=== PATIENT | female | born 1995 | race Caucasian/White ===

== ENCOUNTER 2020-05-07 09:36 | Emergency (ER) | payer BC ==
--- NOTE | 2020-05-07 10:06 | EDM.PDOC ---
ED HPI GENERAL MEDICAL PROBLEM - General Chief Complaint: General Stated Complaint: CHEST PAIN, NECK PAIN Time Seen by Provider: 05/07/20 10:04 - History of Present Illness INITIAL COMMENTS - FREE TEXT/NARRATIVE: 24-year-old female presents to the emergency room with chest pain and anxiety. Patient developed some chest discomfort more of a burning sensation last evening. The patient also had an episode of this this morning. She could not work, so she came in to get evaluated for this. The patient used to be treated for anxiety with Lexapro however she has been off this for quite some time. The patient cannot identify any new stressors in her life she lives in a safe environment. Patient has not had any breathing difficulties or shortness of breath no cough. Chest Pain Score (Numeric/FACES): 2 - Related Data Allergies Allergy/AdvReac Type Severity Reaction Status Date / Time Penicillins Allergy Severe Rash Verified 05/07/20 09:46 Home Meds: Home Meds Famotidine [Heartburn Prevention] 20 mg PO ASDIRECTED #36 tablet 05/07/20 [Rx] LORazepam [Ativan] 0.5 mg PO Q24H PRN #6 tablet 05/07/20 [Rx] Past Medical History - Past Health History Medical/Surgical History: Denies Medical/Surgical History - Past Surgical History HEENT Surgical History: Reports: Oral Surgery Social & Family History - Tobacco Use Smoking Status *Q: Never Smoker - Caffeine Use Caffeine Use: Reports: Coffee ED ROS GENERAL - Review of Systems Review Of Systems: See Below Constitutional: Reports: No Symptoms HEENT: Reports: No Symptoms Respiratory: Reports: No Symptoms Cardiovascular: Reports: Chest Pain (Thought to be GI in origin) GI/Abdominal: Denies: Abdominal Pain, Constipation, Diarrhea, Nausea, Vomiting Psychiatric: Reports: Anxiety. Denies: Hallucinations, Homicidal Ideation, Mood Lability, Suicidal Ideation ED EXAM, GENERAL - Physical Exam Exam: See Below Exam Limited By: No Limitations General Appearance: Alert, No Apparent Distress Head: Atraumatic, Normocephalic Neck: Normal Inspection, Supple, Full Range of Motion (No nuchal rigidity), Other (She has some tightness in the muscles at the base of her skull posteriorl y and this seems to mimic the discomfort she is having in this area.) Respiratory/Chest: No Respiratory Distress, Lungs Clear, Normal Breath Sounds Cardiovascular: Regular Rate, Rhythm, No Edema, No Murmur GI/Abdominal: Normal Bowel Sounds, Soft, Other (Has some moderate epigastric discomfort and mild left upper quadrant discomfort) Back Exam: Normal Inspection. No: CVA Tenderness (L), CVA Tenderness (R) Neurological: Alert, Oriented, Normal Cognition Psychiatric: Normal Affect, Anxious. No: Depressed Mood, Flat Affect Skin Exam: Warm, Dry, Intact EKG INTERPRETATION EKG Date: 05/07/20 Rhythm: NSR [place]: Normal P-Wave: Present QRS: Normal ST-T: Normal QT: Normal Comparison: NA - No Prior EKG EKG Interpretation Comments: Normal EKG Course - Vital Signs Last Recorded V/S: Last Vital Signs Temp 37.2 C 05/07/20 09:41 Pulse 105 H 05/07/20 09:41 Resp 16 05/07/20 09:41 BP 141/82 H 05/07/20 09:41 Pulse Ox 99 05/07/20 09:41 - Orders/Labs/Meds Orders: Active Orders 24 hr Category Date Time Status EKG Documentation Completion [RC] STAT Care 05/07/20 10:38 Active Meds: Medications Discontinued Medications Generic Name Dose Route Start Last Admin Trade Name Freq PRN Reason Stop Dose Admin Famotidine 40 mg 05/07/20 10:38 05/07/20 10:46 Pepcid PO 05/07/20 10:39 40 mg ONETIME ONE Administration - Re-Assessments/Exams Free Text/Narrative Re-Assessment/Exam: 05/07/20 11:05 Discussed the situation with the patient detail I think a lot of this is anxiety related however she is having some reflux symptoms and this needs to be address ed as a separate issue. Patient states she is going to follow-up with her regular provider and see about getting back on something for her anxiety more appropriate for long-term in the meantime we will put her on Ativan 0.5 mg 1 daily as needed #6. She is received 40 mg of p.o. famotidine here in the emergency department she will take 20 mg twice a day for 7 days and then 1 daily thereafter. Departure - Departure Time of Disposition: 11:07 Disposition: Home, Self-Care 01 Clinical Impression: GERD (gastroesophageal reflux disease), Anxiety - Discharge Information Referrals: Darling Renteria NP [Primary Care Provider] - Forms: ED Department Discharge Additional Instructions: Return to the emergency room with any questions problems or worsening symptoms Follow-up with your regular healthcare provider this next week. Use the Ativan, or Lorazepam, once nightly as needed for anxiety. Allow 12 hours after using this medication before driving or returning to work. As we discussed use the Pepcid, or famotidine, 20 mg, 1 twice daily for 1 week and then 1 daily thereafter. Sepsis Event Note (ED) - Evaluation Sepsis Screening Result: No Definite Risk - Focused Exam Vital Signs: Vital Signs Temp Pulse Resp BP Pulse Ox 05/07/20 09:41 37.2 C 105 H 16 141/82 H 99 - My Orders Last 24 Hours: My Active Orders 05/07/20 10:38 EKG Documentation Completion [RC] STAT - Assessment/Plan Last 24 Hours: My Active Orders 05/07/20 10:38 EKG Documentation Completion [RC] STAT
[2020-05-07] MEDS ORDERED: Famotidine 20 MG Tab PO ONE (10:38)
== END 2020-05-07 11:22 | disposition home or self-care (01) ==
LOC: JD.ED 09:36
DX: K21.9 Gastro-esophageal reflux disease without esophagitis (principal); F41.9 Anxiety disorder, unspecified; Z88.0 Allergy status to penicillin
CPT/HCPCS: 93005; 99284; A9270; 93010; 99283

== ENCOUNTER 2021-05-25 03:45 | Inpatient (IN) | payer OTHER ==
[2021-05-25] MEDS ORDERED: Acetaminophen 325 MG Tab PO PRN (07:05)
[2021-05-25] MEDS ORDERED: Ondansetron 4 MG/2 ML SDV IVPUSH PRN (07:05)
[2021-05-25] MEDS ORDERED: Sodium Chloride 0.9% 10 ML Syringe FLUSH PRN (07:05)
[2021-05-25] MEDS ORDERED: Nalbuphine 10 MG/1 ML Vial IVPUSH PRN (07:05)
--- NOTE | 2021-05-25 07:07 | PCM.LDHP ---
L&D History of Present Illness - General Date of Service: 05/25/21 Admit Problem/Dx: Patient Status Order with Admit Dx/Problem 05/25/21 07:05 Patient Status [ADT] Routine Admission Diagnosis/Problem Admission Diagnosis/Problem Normal Source of Information: Patient History Limitations: Reports: No Limitations - History of Present Illness Introduction:: Patient is a 25 y/o at 40 2/7 wks who presents for elective IOL. Doing well. 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: 0 LMP (Approximate): - Past Surgical History HEENT Surgical History: Reports: Oral Surgery Social & Family History - Tobacco Use Tobacco Use Status *Q: Never Tobacco User - Caffeine Use Caffeine Use: Reports: Coffee - Alcohol Use Alcohol Use History: No - Recreational Drug Use Recreational Drug Use: No H&P Review of Systems - Review of Systems: Review Of Systems: See Below General: Reports: No Symptoms Pulmonary: Reports: No Symptoms Cardiovascular: Reports: No Symptoms Gastrointestinal: Reports: No Symptoms Genitourinary: Reports: No Symptoms Musculoskeletal: Reports: No Symptoms Psychiatric: Reports: No Symptoms L&D Exam - Exam Exam: See Below - OB Specific Contraction Intensity: Irritability Movement: Active Heart Tones: Present Heart Tones per Min: 130 Heart Rate (FHR) Variability: Moderate (6-25 bmp) Presentation: Vertex - Ghotra Score Ghotra Score Cervix Position: Midposition Ghotra Score Consistency: Soft Ghotra Score Effacement: 51-70% Ghotra Score Dilation: 1-2 cm Ghotra Score 's Station: -2 Ghotra Score Total: 7 - Exam General: Alert, Oriented, Cooperative Lungs: Clear to Auscultation, Normal Respiratory Effort Cardiovascular: Regular Rate, Regular Rhythm GI/Abdominal Exam: Soft, Non-Tender Genitourinary: Normal external exam Extremities: Normal Inspection Skin: Warm, Dry, Intact - Patient Data Result Diagrams: 05/25/21 07:23 - Problem List (1) 40 weeks gestation of SNOMED Code(s): 65205614 ICD Code: Z3A.40 - 40 WEEKS GESTATION OF Status: Acute Current Visit: Yes Problem List Initiated/Reviewed/Updated: Yes Orders Last 24hrs: Active Orders 24 hr Category Date Time Status Patient Status [ADT] Routine ADT 05/25/21 07:05 Ordered Communication Order [RC] ASDIRECTED Care 05/25/21 07:05 Ordered Communication Order [RC] ASDIRECTED Care 05/25/21 07:05 Ordered Communication Order [RC] ASDIRECTED Care 05/25/21 07:05 Ordered Communication Order [RC] ASDIRECTED Care 05/25/21 07:05 Ordered Monitoring [RC] INTERMITTENT Care 05/25/21 07:05 Ordered Non Stress Test [RC] PER UNIT ROUTINE Care 05/25/21 07:05 Ordered Notify Provider [RC] ASDIRECTED Care 05/25/21 07:05 Ordered Notify Provider [RC] PRN Care 05/25/21 07:05 Ordered Peripheral IV Care [RC] . DIRECTED Care 05/25/21 07:05 Ordered Up ad Nathalie [RC] ASDIRECTED Care 05/25/21 07:05 Ordered Vaginal Exam [RC] ASDIRECTED Care 05/25/21 07:05 Ordered Vital Signs [RC] ASDIRECTED Care 05/25/21 07:05 Ordered Regular Diet [DIET] Diet 05/25/21 Breakfast Ordered CBC W/O DIFF,HEMOGRAM [HEME] Routine Lab 05/25/21 07:05 Ordered CORONAVIRUS COVID-19 CHUCK [MOLEC] Stat Lab 05/25/21 07:07 Ordered HEP C VIRUS AB [REF] Routine Lab 05/25/21 07:05 Ordered RAPID PLASMA REAGIN,RPR [CHEM] Routine Lab 05/25/21 07:05 Ordered TYPE AND SCREEN [BBK] Routine Lab 05/25/21 07:05 Ordered Acetaminophen [TylenoL] Med 05/25/21 07:05 Ordered 650 mg PO Q4H PRN Lactated Ringers [Ringers, Lactated] 1,000 ml Med 05/25/21 07:15 Ordered IV ASDIRECTED Nalbuphine [Nubain] Med 05/25/21 07:05 Ordered 10 mg IVPUSH Q2H PRN Ondansetron [Zofran] Med 05/25/21 07:05 Ordered 4 mg IVPUSH Q4H PRN Oxytocin/Lactated Ringers [Pitocin in LR 10 Units/1,000 Med 05/25/21 07:15 Ordered ML] 10 unit in 1,000 ml IV .CONTINUOUS Oxytocin/Lactated Ringers [Pitocin in LR 10 Units/1,000 Med 05/25/21 07:15 Ordered ML] 10 unit in 1,000 ml IV TITRATE Sodium Chloride 0.9% [Saline Flush] Med 05/25/21 07:05 Ordered 10 ml FLUSH ASDIRECTED PRN miSOPROStoL [Cytotec] Med 05/25/21 07:05 Ordered 25 mcg VAG Q4H PRN Electronic Heart Tones Internal [WOMSER] Per Unit Oth 05/25/21 07:05 Ordered Routine Medication Administration Instruction [OM.PC] Oth 05/25/21 07:15 Ordered ASDIRECTED Peripheral IV Insertion Adult [OM.PC] Routine Oth 05/25/21 07:05 Ordered Resuscitation Status Routine Resus Stat 05/25/21 07:05 Ordered Assessment/Plan Comment:: * Labs to be done * GBS negative, no need for antibiotics * Cytotec for now. Potential lozano bulb later in induction. Pitocin/AROM when able * Pain management per patient preference * Anticipate
[2021-05-25] MEDS ORDERED: Oxytocin/Lactated Ringers 10 UNIT/1,000 ML BAG IV SCH ×2 (07:15)
[2021-05-25] MEDS: Misoprostol 25 MCG (1/4 of 100 MCG) Tab VAG PRN ×2 (07:43→11:54)
--- NOTE | 2021-05-25 08:51 | PCM.PREANE ---
Preanesthetic Assessment - Procedure Proposed Procedure: Labor epidural - Anesthesia/Transfusion/Family Hx Anesthesia History: Prior Anesthesia Without Reaction Family History of Anesthesia Reaction: No Transfusion History: No Prior Transfusion(s) Intubation History: Unknown - Review of Systems General: No Symptoms Pulmonary: No Symptoms Cardiovascular: No Symptoms Gastrointestinal: No Symptoms Neurological: No Symptoms Other: Reports: Anxiety - Physical Assessment NPO Status Date: 05/25/21 NPO Status Time: 08:30 Vital Signs: 120/76 HR 93 97% 16 98.3 Height: 1.7 m Weight: 91.172 kg ASA Class: 2 Mental Status: Alert & Oriented x3 Airway Class: Mallampati = 2 Dentition: Reports: Normal Dentition Thyro-Mental Finger Breadths: 3 Mouth Opening Finger Breadths: 3 ROM/Head Extension: Full Lungs: Clear to Auscultation, Normal Respiratory Effort Cardiovascular: Regular Rate, Regular Rhythm - Lab Values: Laboratory Last Values WBC 11.27 K/mm3 (3.98-10.04) H 05/25/21 07:23 RBC 4.31 M/mm3 (3.98-5.22) 05/25/21 07:23 Hgb 14.0 gm/dl (11.2-15.7) 05/25/21 07:23 Hct 40.6 % (34.1-44.9) 05/25/21 07:23 MCV 94.2 fl (79.4-94.8) 05/25/21 07:23 MCH 32.5 pg (25.6-32.2) H 05/25/21 07:23 MCHC 34.5 g/dl (32.2-35.5) 05/25/21 07:23 RDW Std Deviation 43.6 fL (36.4-46.3) 05/25/21 07:23 Plt Count 300 K/mm3 (182-369) 05/25/21 07:23 MPV 9.1 fl (9.4-12.3) L 05/25/21 07:23 SARS-CoV-2 RNA (CHUCK) Negative (NEGATIVE) 05/25/21 07:24 - Allergies Allergies/Adverse Reactions: Allergies Allergy/AdvReac Type Severity Reaction Status Date / Time Penicillins Allergy Severe Rash Verified 05/07/20 09:46 - Blood Blood Available: No Product(s) Available: None - Anesthesia Plan Pre-Op Medication Ordered: None - Acknowledgements Anesthesia Type Planned: Epidural Pt an Appropriate Candidate for the Planned Anesthesia: Yes Alternatives and Risks of Anesthesia Discussed w Pt/Guardian: Yes Pt/Guardian Understands and Agrees with Anesthesia Plan: Yes PreAnesthesia Questionnaire - Past Health History Medical/Surgical History: Denies Medical/Surgical History 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: Psychiatric History: Reports: Anxiety Other Dermatologic History: Vitiligo - Past Surgical History HEENT Surgical History: Reports: Oral Surgery - SUBSTANCE USE Tobacco Use Status *Q: Never Tobacco User Tobacco Use Within Last Twelve Months: No Second Hand Smoke Exposure: No Days Per Week of Alcohol Use: 0 Number of Drinks Per Day: 0 Total Drinks Per Week: 0 Recreational Drug Use History: No - HOME MEDS Home Medications: Home Meds Famotidine [Heartburn Prevention] 20 mg PO ASDIRECTED #36 tablet 05/07/20 [Rx] LORazepam [Ativan] 0.5 mg PO Q24H PRN #6 tablet 05/07/20 [Rx] - CURRENT (IN HOUSE) MEDS Current Meds: Current Medications Acetaminophen (Acetaminophen 325 Mg Tab) 650 mg PO Q4H PRN PRN Reason: Pain (Mild 1-3) and fever Oxytocin/Lactated Ringer's (Pitocin In Lr 10 Units/1,000 Ml) 10 unit in 1,000 mls @ 12 mls/hr IV TITRATE DAMIAN; Protocol Oxytocin/Lactated Ringer's (Pitocin In Lr 10 Units/1,000 Ml) 10 unit in 1,000 mls @ 500 mls/hr IV .CONTINUOUS DAMIAN Lactated Ringer's (Ringers, Lactated) 1,000 mls @ 40 mls/hr IV ASDIRECTED DAMIAN Misoprostol (Misoprostol 25 Mcg (1/4 Of 100 Mcg) Tab) 25 mcg VAG Q4H PRN PRN Reason: cervical ripening Last Admin: 05/25/21 07:43 Dose: 25 mcg Documented by: Nalbuphine HCl (Nalbuphine 10 Mg/1 Ml Vial) 10 mg IVPUSH Q2H PRN PRN Reason: Pain Ondansetron HCl (Ondansetron 4 Mg/2 Ml Sdv) 4 mg IVPUSH Q4H PRN PRN Reason: Nausea/Vomiting Sodium Chloride (Sodium Chloride 0.9% 10 Ml Syringe) 10 ml FLUSH ASDIRECTED PRN PRN Reason: Keep Vein Open
[2021-05-25] MEDS: Lactated Ringers 1,000 ML IV SCH ×2 (16:56→22:38)
[2021-05-25] MEDS ORDERED: Bupivacaine/fentaNYL/NS 100 ML Bag EPIDUR PRN (17:01)
[2021-05-25] MEDS ORDERED: ePHEDrine 50 MG/ML SDV IVPUSH PRN (17:01)
[2021-05-25] MEDS ORDERED: fentaNYL 100 MCG/2 ML SDV EPIDUR PRN (17:01)
[2021-05-25] MEDS ORDERED: diphenhydrAMINE 50 MG/ML SDV IVPUSH PRN (17:01)
--- NOTE | 2021-05-25 20:09 | PCM.PNLD ---
Labor Progress Note - VS & Meds Vital Signs: Last Vital Signs Temp 36.8 C 05/25/21 07:18 Pulse 93 05/25/21 07:18 Resp 16 05/25/21 07:18 BP 120/76 05/25/21 07:18 Pulse Ox 97 05/25/21 07:18 Active Medications: Current Medications Acetaminophen (Acetaminophen 325 Mg Tab) 650 mg PO Q4H PRN PRN Reason: Pain (Mild 1-3) and fever Diphenhydramine HCl (Diphenhydramine 50 Mg/Ml Sdv) 25 mg IVPUSH Q6H PRN PRN Reason: pruritis Ephedrine Sulfate (Ephedrine 50 Mg/Ml Sdv) 5 mg IVPUSH ASDIRECTED PRN PRN Reason: Hypotension Fentanyl (Fentanyl 100 Mcg/2 Ml Sdv) 100 mcg EPIDUR Q3H PRN PRN Reason: Pain Last Admin: 05/25/21 20:01 Dose: 100 mcg Documented by: Fentanyl/Bupivacaine HCl (Bupivacaine/Fentanyl/Ns 100 Ml Bag) 100 ml EPIDUR ASDIRECTED PRN PRN Reason: Pain Last Admin: 05/25/21 20:01 Dose: 100 ml Documented by: Oxytocin/Lactated Ringer's (Pitocin In Lr 10 Units/1,000 Ml) 10 unit in 1,000 mls @ 12 mls/hr IV TITRATE DAMIAN; Protocol Last Admin: 05/25/21 16:57 Dose: 2 munits/min, 12 mls/hr Documented by: Oxytocin/Lactated Ringer's (Pitocin In Lr 10 Units/1,000 Ml) 10 unit in 1,000 mls @ 500 mls/hr IV .CONTINUOUS DAMIAN Lactated Ringer's (Ringers, Lactated) 1,000 mls @ 40 mls/hr IV ASDIRECTED DAMIAN Last Admin: 05/25/21 16:56 Dose: 40 mls/hr Documented by: Misoprostol (Misoprostol 25 Mcg (1/4 Of 100 Mcg) Tab) 25 mcg VAG Q4H PRN PRN Reason: cervical ripening Last Admin: 05/25/21 11:54 Dose: 25 mcg Documented by: Nalbuphine HCl (Nalbuphine 10 Mg/1 Ml Vial) 10 mg IVPUSH Q2H PRN PRN Reason: Pain Ondansetron HCl (Ondansetron 4 Mg/2 Ml Sdv) 4 mg IVPUSH Q4H PRN PRN Reason: Nausea/Vomiting Sodium Chloride (Sodium Chloride 0.9% 10 Ml Syringe) 10 ml FLUSH ASDIRECTED PRN PRN Reason: Keep Vein Open - Uterine Contractions Uterine Monitoring Mode: External [place] Contraction Intensity: Moderate - Monitoring Monitor Mode: External Ultrasound Heart Rate (FHR) Baseline: 125 Heart Rate (FHR) Variability: Moderate (6-25 bmp) Accelerations: Present, 15x15 Decelerations: None Strip Review: Category I - Vaginal Exam Dilation (cm): 5 Effacement (Percent): 70 Station: -2 Cervical Position: Midposition - Labor Progress (Free Text) Labor Progress: Doing well. Received 1st dose of cytotec at 0745 and then 2nd dose and lozano bulb at 1200. Lozano bulb out around 1600 or so. Started on Pitocin at 1700, currently only on 4. Rates contractions 5/10. AROM done with release of clear fluid. Planning epidural next
[2021-05-26] MEDS ORDERED: Bupivacaine 0.25% 10 ML SDV ONE ×2
--- NOTE | 2021-05-26 04:10 | PCM.DEL ---
L & D Note - General Info Date of Service: 05/26/21 - Delivery Note Labor: Induced by ARM, Induced by Oxytocin Cervical Ripening Method: Balloon Device, Misoprostil Delivery Outcome: Livebirth Infant Delivery Method: Spontaneous Vaginal Delivery-Single Delivery Mode: Spontaneous Presentation: Left Occiput Anterior (ANJANA) Nuchal Cord: Present (Tight, not reduced ) Anesthesia Type: Epidural Amniotic Fluid Description: Clear Episiotomy Type: None Laceration: 2nd Degree, Perineal, Vaginal Suture type: Vicryl Suture size: 2-0 Placenta: Intact, Spontaneous Cord: 3 Vessels Estimated Blood Loss: 100 Resuscitation Needed: Yes : Bulb Syringe, Stimulated, Warmed, [place] Used, Warmer Used Delivery Comments (Free Text/Narrative):: Patient found to be complete and began pushing. With maternal pushing effort head delivered from ANJANA presentation. Tight nuchal present and so not reduced. With gentle downward traction the shoulders and body delivered. Infant placed on maternal abdomen. Cord clamped and cut. Cord blood obtained. Placenta allowed time to separate and expelled intact. Inspection of perineum showed a 2nd degree vaginal and perineal laceration. This was repaired with a 2-0 Vicryl . - General Info Date of Service: 05/26/21 - Patient Data Vitals - Most Recent: Last Vital Signs Temp 36.8 C 05/25/21 07:18 Pulse 93 05/25/21 07:18 Resp 16 05/25/21 07:18 BP 120/76 05/25/21 07:18 Pulse Ox 97 05/25/21 07:18 Weight - Most Recent: 91.172 kg I&O - Last 24 Hours: Intake & Output 05/25/21 05/25/21 05/26/21 14:59 22:59 06:59 Intake Total 1000 Balance 1000 Lab Results Last 24 Hours: Laboratory Results - last 24 hr 05/25/21 05/25/21 05/25/21 Range/Units 07:23 07:23 07:23 WBC 11.27 H (3.98-10.04) K/mm3 RBC 4.31 (3.98-5.22) M/mm3 Hgb 14.0 (11.2-15.7) gm/dl Hct 40.6 (34.1-44.9) % MCV 94.2 (79.4-94.8) fl MCH 32.5 H (25.6-32.2) pg MCHC 34.5 (32.2-35.5) g/dl RDW Std Deviation 43.6 (36.4-46.3) fL Plt Count 300 (182-369) K/mm3 MPV 9.1 L (9.4-12.3) fl RPR Non-reactive (NONREACTIVE) SARS-CoV-2 RNA (CHUCK) (NEGATIVE) Blood Type O NEGATIVE Gel Antibody Screen Positive 05/25/21 Range/Units 07:24 WBC (3.98-10.04) K/mm3 RBC (3.98-5.22) M/mm3 Hgb (11.2-15.7) gm/dl Hct (34.1-44.9) % MCV (79.4-94.8) fl MCH (25.6-32.2) pg MCHC (32.2-35.5) g/dl RDW Std Deviation (36.4-46.3) fL Plt Count (182-369) K/mm3 MPV (9.4-12.3) fl RPR (NONREACTIVE) SARS-CoV-2 RNA (CHUCK) Negative (NEGATIVE) Blood Type Gel Antibody Screen Med Orders - Current: Current Medications Acetaminophen (Acetaminophen 325 Mg Tab) 650 mg PO Q4H PRN PRN Reason: Pain (Mild 1-3) and fever Diphenhydramine HCl (Diphenhydramine 50 Mg/Ml Sdv) 25 mg IVPUSH Q6H PRN PRN Reason: pruritis Ephedrine Sulfate (Ephedrine 50 Mg/Ml Sdv) 5 mg IVPUSH ASDIRECTED PRN PRN Reason: Hypotension Fentanyl (Fentanyl 100 Mcg/2 Ml Sdv) 100 mcg EPIDUR Q3H PRN PRN Reason: Pain Last Admin: 05/25/21 20:01 Dose: 100 mcg Documented by: Fentanyl/Bupivacaine HCl (Bupivacaine/Fentanyl/Ns 100 Ml Bag) 100 ml EPIDUR ASDIRECTED PRN PRN Reason: Pain Last Admin: 05/25/21 20:01 Dose: 100 ml Documented by: Oxytocin/Lactated Ringer's (Pitocin In Lr 10 Units/1,000 Ml) 10 unit in 1,000 mls @ 12 mls/hr IV TITRATE DAMIAN; Protocol Last Admin: 05/25/21 16:57 Dose: 2 munits/min, 12 mls/hr Documented by: Oxytocin/Lactated Ringer's (Pitocin In Lr 10 Units/1,000 Ml) 10 unit in 1,000 mls @ 500 mls/hr IV .CONTINUOUS DAMIAN Lactated Ringer's (Ringers, Lactated) 1,000 mls @ 40 mls/hr IV ASDIRECTED DAMIAN Last Admin: 05/25/21 22:38 Dose: 40 mls/hr Documented by: Misoprostol (Misoprostol 25 Mcg (1/4 Of 100 Mcg) Tab) 25 mcg VAG Q4H PRN PRN Reason: cervical ripening Last Admin: 05/25/21 11:54 Dose: 25 mcg Documented by: Nalbuphine HCl (Nalbuphine 10 Mg/1 Ml Vial) 10 mg IVPUSH Q2H PRN PRN Reason: Pain Ondansetron HCl (Ondansetron 4 Mg/2 Ml Sdv) 4 mg IVPUSH Q4H PRN PRN Reason: Nausea/Vomiting Last Admin: 05/25/21 20:53 Dose: 4 mg Documented by: Sodium Chloride (Sodium Chloride 0.9% 10 Ml Syringe) 10 ml FLUSH ASDIRECTED PRN PRN Reason: Keep Vein Open - Exam Urinary Catheter Total Time: 0Days 0Hours - Problem List & Annotations (1) 40 weeks gestation of SNOMED Code(s): 04971304 Code(s): Z3A.40 - 40 WEEKS GESTATION OF Status: Acute Current Visit: Yes (2) Vaginal delivery SNOMED Code(s): 580427127 Code(s): O80 - ENCOUNTER FOR FULL-TERM UNCOMPLICATED DELIVERY Status: Acute Current Visit: Yes - Problem List Review Problem List Initiated/Reviewed/Updated: Yes - My Orders Last 24 Hours: My Active Orders 05/25/21 Breakfast Regular Diet [DIET] 05/25/21 07:05 Patient Status [ADT] Routine Communication Order [RC] ASDIRECTED Communication Order [RC] ASDIRECTED Communication Order [RC] ASDIRECTED Communication Order [RC] ASDIRECTED Notify Provider [RC] ASDIRECTED Notify Provider [RC] PRN Up ad Nathalie [RC] ASDIRECTED Acetaminophen [TylenoL] 650 mg PO Q4H PRN Nalbuphine [Nubain] 10 mg IVPUSH Q2H PRN Ondansetron [Zofran] 4 mg IVPUSH Q4H PRN Sodium Chloride 0.9% [Saline Flush] 10 ml FLUSH ASDIRECTED PRN miSOPROStoL [Cytotec] 25 mcg VAG Q4H PRN Electronic Heart Tones Internal [WOMSER] Per Unit Routine Peripheral IV Insertion Adult [OM.PC] Routine Resuscitation Status Routine 05/25/21 07:15 Lactated Ringers [Ringers, Lactated] 1,000 ml IV ASDIRECTED Oxytocin/Lactated Ringers [Pitocin in LR 10 Units/1,000 ML] 10 unit in 1,000 ml IV .CONTINUOUS Oxytocin/Lactated Ringers [Pitocin in LR 10 Units/1,000 ML] 10 unit in 1,000 ml IV TITRATE Medication Administration Instruction [OM.PC] ASDIRECTED 05/25/21 07:23 ANTIBODY IDENTIFICATION [BBK] Routine HEP C VIRUS AB [REF] Routine TYPE AND SCREEN [BBK] Routine - Assessment Assessment:: PPD#0 - Plan Plan:: * Routine cares * Breast feeding * Continue home Lexapro * Discharge home in 1-2 days
[2021-05-26] MEDS ORDERED: Witch Hazel Medicated Pads 40/Jar TOP PRN (05:14)
[2021-05-26] MEDS ORDERED: Benzocaine/Menthol 20%-0.5% Spray 56 GM Canister TOP PRN (05:14)
[2021-05-26] MEDS ORDERED: Docusate Sodium 100 MG Cap PO PRN (05:14)
[2021-05-26] MEDS: Ibuprofen 600 MG Tab PO PRN ×2 (05:43→17:22)
[2021-05-26] MEDS: Citalopram 20 MG Tab PO SCH (09:51)
[2021-05-26] MEDS: Acetaminophen 325 MG Tab PO PRN (17:22)
--- NOTE | 2021-05-26 18:30 | PCM48HPAN ---
Post Anesthesia Note - EVALUATION WITHIN 48HRS OF ANESTHETIC Vital Signs in Normal Range: Yes Patient Participated in Evaluation: Yes Respiratory Function Stable: Yes Airway Patent: Yes Cardiovascular Function Stable: Yes Hydration Status Stable: Yes Pain Control Satisfactory: Yes Nausea and Vomiting Control Satisfactory: Yes Mental Status Recovered: Yes Vital Signs: Last Vital Signs Temp 36.7 C 05/26/21 15:38 Pulse 72 05/26/21 15:38 Resp 16 05/26/21 15:38 BP 110/67 05/26/21 15:38 Pulse Ox 96 05/26/21 15:38
[2021-05-27] MEDS: Ibuprofen 600 MG Tab PO PRN (00:59)
[2021-05-27] MEDS: Acetaminophen 325 MG Tab PO PRN (00:59)
--- NOTE | 2021-05-27 08:06 | PCM.DCSUM1 ---
Discharge Summary - Hospital Course Diagnosis: Stroke: No - Discharge Data Discharge Date: 05/27/21 Discharge Disposition: Home, Self-Care 01 Condition: Good - Referral to Home Health Primary Care Physician: Darling Renteria NP - Patient Instructions Diet: Usual Diet as Tolerated Driving: May Drive Today Showering/Bathing: May Shower Notify Provider of: Fever, Increased Pain, Swelling and Redness, Drainage, Nausea and/or Vomiting - Discharge Plan *PRESCRIPTION DRUG MONITORING PROGRAM REVIEWED*: No *COPY OF PRESCRIPTION DRUG MONITORING REPORT IN PATIENT JIMBO: No Home Medications: Home Meds Escitalopram Oxalate [Lexapro] 10 mg PO DAILY 05/25/21 [History] Pnv No.95/Ferrous Fum/Folic AC [ Tablet] 1 tab PO DAILY 05/25/21 [History] Referrals: Payal Hunter MD [Physician] - (2 weeks) - Discharge Summary/Plan Comment DC Time >30 min.: No - General Info Date of Service: 05/27/21 Functional Status: Reports: Pain Controlled - Review of Systems General: Reports: No Symptoms HEENT: Reports: No Symptoms Pulmonary: Reports: No Symptoms Cardiovascular: Reports: No Symptoms Gastrointestinal: Reports: No Symptoms Genitourinary: Reports: No Symptoms Musculoskeletal: Reports: No Symptoms Skin: Reports: No Symptoms Neurological: Reports: No Symptoms Psychiatric: Reports: No Symptoms - Patient Data Vitals - Most Recent: Last Vital Signs Temp 36.9 C 05/27/21 04:38 Pulse 58 L 05/27/21 04:38 Resp 14 05/27/21 04:38 BP 121/68 05/27/21 04:38 Pulse Ox 98 05/27/21 04:38 Weight - Most Recent: 91.172 kg I&O - Last 24 hours: Intake & Output 05/26/21 05/27/21 05/27/21 22:59 06:59 14:59 Intake Total 0 Balance 0 Med Orders - Current: Current Medications Acetaminophen (Acetaminophen 325 Mg Tab) 650 mg PO Q4H PRN PRN Reason: mild pain or fever Last Admin: 05/27/21 00:59 Dose: 650 mg Documented by: Benzocaine/Menthol (Benzocaine/Menthol 20%-0.5% [place] 56 Gm Canister) 0 gm TOP ASDIRECTED PRN PRN Reason: Perineal Comfort Measure Last Admin: 05/26/21 05:44 Dose: 1 can Documented by: Citalopram Hydrobromide (Citalopram 20 Mg Tab) 20 mg PO DAILY DAMIAN Last Admin: 05/26/21 09:51 Dose: Not Given Documented by: Docusate Sodium (Docusate Sodium 100 Mg Cap) 100 mg PO BID PRN PRN Reason: Constipation Last Admin: 05/26/21 05:43 Dose: 100 mg Documented by: Ibuprofen (Ibuprofen 600 Mg Tab) 600 mg PO Q6H PRN PRN Reason: Mild pain or fever Last Admin: 05/27/21 00:59 Dose: 600 mg Documented by: Irma Boss (Irma Boss Medicated Pads 40/Jar) 1 pad TOP ASDIRECTED PRN PRN Reason: Perineal Comfort Measure Last Admin: 05/26/21 05:44 Dose: 1 tub Documented by: Discontinued Medications Acetaminophen (Acetaminophen 325 Mg Tab) 650 mg PO Q4H PRN PRN Reason: Pain (Mild 1-3) and fever Last Admin: 05/26/21 02:09 Dose: 650 mg Documented by: Bupivacaine HCl (Bupivacaine 0.25% 10 Ml Sdv) 10 ml .ROUTE .STK-MED ONE Stop: 05/26/21 00:01 Bupivacaine HCl (Bupivacaine 0.25% 10 Ml Sdv) 10 ml .ROUTE .STK-MED ONE Stop: 05/26/21 00:01 Diphenhydramine HCl (Diphenhydramine 50 Mg/Ml Sdv) 25 mg IVPUSH Q6H PRN PRN Reason: pruritis Ephedrine Sulfate (Ephedrine 50 Mg/Ml Sdv) 5 mg IVPUSH ASDIRECTED PRN PRN Reason: Hypotension Fentanyl (Fentanyl 100 Mcg/2 Ml Sdv) 100 mcg EPIDUR Q3H PRN PRN Reason: Pain Last Admin: 05/25/21 20:01 Dose: 100 mcg Documented by: Fentanyl/Bupivacaine HCl (Bupivacaine/Fentanyl/Ns 100 Ml Bag) 100 ml EPIDUR ASDIRECTED PRN PRN Reason: Pain Last Admin: 05/25/21 20:01 Dose: 100 ml Documented by: Oxytocin/Lactated Ringer's (Pitocin In Lr 10 Units/1,000 Ml) 10 unit in 1,000 mls @ 12 mls/hr IV TITRATE DAMIAN; Protocol Last Titration: 05/26/21 03:46 Dose: 166.5 munits/min, 999 mls/hr Documented by: Oxytocin/Lactated Ringer's (Pitocin In Lr 10 Units/1,000 Ml) 10 unit in 1,000 mls @ 500 mls/hr IV .CONTINUOUS DAMIAN Lactated Ringer's (Ringers, Lactated) 1,000 mls @ 40 mls/hr IV ASDIRECTED DAMIAN Last Admin: 05/25/21 22:38 Dose: 40 mls/hr Documented by: Misoprostol (Misoprostol 25 Mcg (1/4 Of 100 Mcg) Tab) 25 mcg VAG Q4H PRN PRN Reason: cervical ripening Last Admin: 05/25/21 11:54 Dose: 25 mcg Documented by: Nalbuphine HCl (Nalbuphine 10 Mg/1 Ml Vial) 10 mg IVPUSH Q2H PRN PRN Reason: Pain Ondansetron HCl (Ondansetron 4 Mg/2 Ml Sdv) 4 mg IVPUSH Q4H PRN PRN Reason: Nausea/Vomiting Last Admin: 05/25/21 20:53 Dose: 4 mg Documented by: Sodium Chloride (Sodium Chloride 0.9% 10 Ml Syringe) 10 ml FLUSH ASDIRECTED PRN PRN Reason: Keep Vein Open - Exam General: Reports: Alert, Oriented HEENT: Reports: Pupils Equal, Pupils Reactive, EOMI, Mucous Membr. Moist/[place] Neck: Reports: Supple Lungs: Reports: Clear to Auscultation, Normal Respiratory Effort Cardiovascular: Reports: Regular Rate, Regular Rhythm GI/Abdominal Exam: Normal Bowel Sounds, Soft, Non-Tender, No Organomegaly, No Distention, No Abnormal Bruit, No Mass, Pelvis Stable Rectal (Female) Exam: Normal Exam, Normal Rectal Tone Back Exam: Reports: Normal Inspection, Full Range of Motion Extremities: Normal Inspection, Normal Range of Motion, Non-Tender, No Pedal Edema, Normal Capillary Refill Skin: Reports: Warm, Dry, Intact Wound/Incisions: Reports: Healing Well Neurological: Reports: No New Focal Deficit Psy/Mental Status: Reports: Alert, Normal Affect, Normal Mood
[2021-05-27] MEDS: Citalopram 20 MG Tab PO SCH (08:51)
== END 2021-05-27 10:40 | disposition home or self-care (01) | DRG 807 ==
LOC: JD.OB 03:45 → OBSVTOIN 05-26 03:45
PROVIDERS: ADMIT Obstetrics & Gynecology; ATTEND Obstetrics & Gynecology
PROC: 10E0XZZ Delivery of Products of Conception, External Approach (ICD-10-PCS; principal; 2021-05-26)
PROC: 0KQM0ZZ Repair Perineum Muscle, Open Approach (ICD-10-PCS; 2021-05-26)
PROC: 10907ZC Drainage of Amniotic Fluid, Therapeutic from Products of Conception, Via Natural or Artificial Opening (ICD-10-PCS; 2021-05-26)
PROC: 3E0P7VZ Introduction of Hormone into Female Reproductive, Via Natural or Artificial Opening (ICD-10-PCS; 2021-05-26)
PROC: 3E033VJ Introduction of Other Hormone into Peripheral Vein, Percutaneous Approach (ICD-10-PCS; 2021-05-26)
DX: O48.0 Post-term pregnancy (principal); O70.1 Second degree perineal laceration during delivery; O69.1XX0 Labor and delivery complicated by cord around neck, with compression, not applicable or unspecified; Z20.822 Contact with and (suspected) exposure to COVID-19; Z37.0 Single live birth; Z3A.40 40 weeks gestation of pregnancy; Z88.0 Allergy status to penicillin
CPT/HCPCS: 01967; 36415; 51702; 59025; 59409; 85027; 86592; 86803; 86850; 86870; 86900; 86901; A9270-GY; J2405; J2590; J3010; J3490; J7120; U0002

== ENCOUNTER 2025-01-14 07:06 | Inpatient (IN) | payer OTHER ==
[2025-01-14] MEDS ORDERED: Acetaminophen 325 MG Tab PO PRN (07:08)
[2025-01-14] MEDS ORDERED: Lidocaine 1% 50 ML MDV INJECT PRN (07:08)
[2025-01-14] MEDS ORDERED: Nalbuphine 10 MG/1 ML Vial IVPUSH PRN (07:08)
[2025-01-14] MEDS ORDERED: Sodium Chloride 0.9% 10 ML Syringe FLUSH PRN (07:08)
[2025-01-14] MEDS ORDERED: Oxytocin/0.9 % Sodium Chloride 30 UNIT/500 ML BAG IV SCH (07:15)
[2025-01-14 07:43] LABS: BASOPHILS PERCENT AUTO 0.2 % (0.0-1.0); EOSINOPHILS ABSOLUTE AUTO 0.2 K/mm3 (0.0-0.4); EOSINOPHILS PERCENT AUTO 1.4 % (0.0-6.0); HEMATOCRIT 40.6 % (37.0-47.0); HEMOGLOBIN 14.2 gm/dl (12.0-16.0); IMMATURE GRAN ABSOLUTE AUTO 0.06 K/mm3 (0.00-0.05); IMMATURE GRAN PERCENT AUTO 0.4 % (0.0-0.4); LYMPHOCYTES PERCENT AUTO 13.8 % (24.0-44.0); MEAN CORPUSCULAR HEMOGLOBIN 32.3 pg (28.0-32.0); MEAN CORPUSCULAR VOLUME 92.3 fl (83.0-99.0); MEAN PLATELET VOLUME 9.2 fl (9.4-12.3); MONOCYTES ABSOLUTE AUTO 0.8 K/mm3 (0.0-0.8); MONOCYTES PERCENT AUTO 5.7 % (0.0-8.0); NEUTROPHILS ABSOLUTE AUTO 11.4 K/mm3 (1.8-7.7); NEUTROPHILS PERCENT AUTO 78.5 % (41.0-71.0); PLATELET COUNT,PLT 299 K/mm3 (150-400); WHITE BLOOD CELL COUNT,WBC 14.47 K/mm3 (3.9-11.3)
[2025-01-14] MEDS: Lactated Ringers 1,000 ML IV SCH (08:30)
[2025-01-14] MEDS: Oxytocin/0.9 % Sodium Chloride 30 UNIT/500 ML BAG IV SCH (08:31)
[2025-01-14] MEDS: Ondansetron 4 MG/2 ML SDV IVPUSH PRN (10:27)
[2025-01-14] MEDS: Sodium Chloride 0.9% 10 ML Syringe FLUSH SCH (10:44)
[2025-01-14] MEDS ORDERED: diphenhydrAMINE 50 MG/ML SDV IVPUSH PRN (10:54)
[2025-01-14] MEDS: Bupivacaine/fentaNYL/NS 100 ML Bag EPIDUR PRN (10:59)
[2025-01-14] MEDS: ePHEDrine 50 MG/ML SDV IVPUSH PRN (11:52)
[2025-01-14] MEDS ORDERED: Docusate Sodium 100 MG Cap PO PRN (21:38)
[2025-01-14] MEDS: Ibuprofen 600 MG Tab PO SCH (21:47)
[2025-01-14] MEDS: Witch Hazel Medicated Pads 40/Jar TOP PRN (21:48)
[2025-01-14] MEDS: Benzocaine/Menthol 20%-0.5% Spray 78 GM Cannister TOP PRN (21:48)
[2025-01-15] MEDS ORDERED: Measles, Mumps & Rubella Vaccine 0.5 ML SDV SUBCUT ONE ×2 (07:45→10:00)
[2025-01-15] MEDS: Acetaminophen 325 MG Tab PO PRN (13:21)
[2025-01-15] MEDS: Measles, Mumps & Rubella Vaccine 0.5 ML SDV SUBCUT ONE (21:28)
== END 2025-01-15 22:02 | disposition home or self-care (01) | DRG 807 ==
LOC: JD.OB 07:06 → OBSVTOIN 19:29 → JD.OB 19:29
PROVIDERS: ADMIT Obstetrics & Gynecology; ATTEND Obstetrics & Gynecology
PROC: 10E0XZZ Delivery of Products of Conception, External Approach (ICD-10-PCS; principal; 2025-01-14)
PROC: 0KQM0ZZ Repair Perineum Muscle, Open Approach (ICD-10-PCS; 2025-01-14)
PROC: 10907ZC Drainage of Amniotic Fluid, Therapeutic from Products of Conception, Via Natural or Artificial Opening (ICD-10-PCS; 2025-01-14)
PROC: 0U7C7ZZ Dilation of Cervix, Via Natural or Artificial Opening (ICD-10-PCS; 2025-01-14)
PROC: 3E033VJ Introduction of Other Hormone into Peripheral Vein, Percutaneous Approach (ICD-10-PCS; 2025-01-14)
PROC: 3E0234Z Introduction of Serum, Toxoid and Vaccine into Muscle, Percutaneous Approach (ICD-10-PCS; 2025-01-15)
DX: O48.0 Post-term pregnancy (principal); Z37.0 Single live birth; O70.1 Second degree perineal laceration during delivery; O77.0 Labor and delivery complicated by meconium in amniotic fluid; Z3A.40 40 weeks gestation of pregnancy; Z88.0 Allergy status to penicillin; Z98.890 Other specified postprocedural states; Z28.39 Other underimmunization status; Z23 Encounter for immunization
CPT/HCPCS: 36415; 51701; 59025; 59409; 85025; 86592; 86850; 86900; 86901; 90471; 90707; A9270-GY; C1726; C1758; J2405; J3490; J7120; J7999